=== PATIENT | female | born 1975 | race Asian ===

== ENCOUNTER 2017-09-02 23:11 | Emergency (ER) | payer SELFPAY ==
[~2017-09-02] VITALS: Ht 152.4 cm; Wt 63.6 kg
[2017-09-03 00:40] LABS: BASOPHILS % (AUTO) 0.3 % (0.0-2.0); EOSINOPHILS % (AUTO) 1.2 % (1.0-6.0); HEMATOCRIT 42.4 % (36-46); HEMOGLOBIN 14.7 g/dL (12.0-16.0); LYMPHOCYTES # (AUTO) 2.7 K/uL (1.0-4.8); LYMPHOCYTES % (AUTO) 31.9 % (22.0-44.0); MEAN CORPUSCULAR HEMOGLOBIN 29.7 pg (26.0-34.0); MEAN CORPUSCULAR HGB CONC 34.7 G/dL (31.0-37.0); MEAN CORPUSCULAR VOLUME 86 fL (80-100); MONOCYTES # (AUTO) 0.5 K/uL (0.1-1.0); MONOCYTES % (AUTO) 6.2 % (2.0-9.0); NEUTROPHILS # (AUTO) 5.2 K/uL (1.8-7.7); NEUTROPHILS % (AUTO) 60.4 % (40.0-70.0); PLATELET COUNT (AUTO) 292 K/uL (150-450); RED BLOOD CELL COUNT(AUTO) 4.95 MIL/uL (4.00-5.20); RED CELL DISTRIBUTION WIDTH 12.6 % (11.5-14.5); WHITE BLOOD COUNT (AUTO) 8.5 K/uL (4.5-11.0)
[2017-09-03 00:49] LABS: ANION GAP 7 mmol/L (8-16); CALCIUM, TOTAL 8.5 mg/dL (8.8-10.5); CARBON DIOXIDE 27 mmol/L (22-29); CHLORIDE 103 mmol/L (98-107); CREATININE 0.81 mg/dL (0.60-1.30); GLOMERULAR FILTR. RATE CALC > 60 mL/min (>60); POTASSIUM 3.7 mmol/L (3.5-5.1); SODIUM SERUM 137 mmol/L (136-145); UREA NITROGEN, BLOOD 14 mg/dL (7-18)
[2017-09-03 00:55] LABS: ALANINE AMINOTRANSFERASE 22 U/L (12-78); ALBUMIN 3.4 g/dL (3.4-5.0); ASPARTATE AMINOTRANSFERASE 16 U/L (15-37); BILIRUBIN,TOTAL 0.2 mg/dL (0.1-1.0); TOTAL PROTEIN, SERUM 7.2 g/dL (6.4-8.2)
[2017-09-03] MEDS ORDERED: LORazepam 2 MG/ML VIAL IVP ONE (01:45)
[2017-09-03] MEDS ORDERED: ONDANSETRON HCL 4 MG/2 ML VIAL IVP ONE (01:45)
[2017-09-03] MEDS ORDERED: MECLIZINE HCL 25 MG TABLET PO ONE (01:45)
[2017-09-03 03:07] VITALS: BP 120/68
== END 2017-09-03 03:26 | disposition home or self-care (01) ==
LOC: EMS 23:12
DX: F41.9 Anxiety disorder, unspecified (principal); R42 Dizziness and giddiness
CPT/HCPCS: 36415; 80053; 84703; 85025; 93005; 96374; 96375; 99285; G0480; J2060; J2405

== ENCOUNTER 2018-08-15 01:39 | Emergency (ER) | payer SELFPAY ==
[~2018-08-15] VITALS: Ht 152.4 cm; Wt 59.1 kg
[2018-08-15] MEDS ORDERED: AMOX500T2 PO (01:47)
[2018-08-15] MEDS ORDERED: TRAM50TA4 PO (01:47)
[2018-08-15 03:15] VITALS: BP 118/65
== END 2018-08-15 03:35 | disposition home or self-care (01) ==
LOC: EMS 01:41
DX: R05 Cough (principal); Z91.013 Allergy to seafood